=== PATIENT | male | born 1990 | race Two or more races ===

== ENCOUNTER → 2016-07-31 | Outpatient (CLI) | payer BC | LOC: M LAB 09:58 | PROVIDERS: ATTEND Family Medicine | DX: Z00.00 Encounter for general adult medical examination without abnormal findings (principal); R03.0 Elevated blood-pressure reading, without diagnosis of hypertension ==

== ENCOUNTER → 2016-08-16 | Outpatient (CLI) | payer BC ==
--- NOTE | 2016-08-19 15:08 | SLEEPHOME ---
DATE OF PROCEDURE: 08/16/2016 ORDERED BY: Shikha Shahid NP Diagnostic home sleep testing was performed due to concern for the obstructive sleep apnea syndrome in this patient with nonrestorative sleep and excessive somnolence. For testing, a NOX-T3 respiratory monitoring device was used. Continuous record was made of pulse, oxygen saturation, airflow, chest and abdominal strain, and body position. 9 hours and 59 minutes of data were reviewed. Only 3 hours and 5 minutes of time was marked as time in bed. However, during the interval marked time in bed, there were 47 respiratory events identified of 10 seconds in duration or greater. The respiratory event index was 15.2. The patient's events were primarily obstructive. The patient's baseline pulse rate was 78 beats per minute. Pulse rate ranged 51 to 115. Baseline saturation was 95%. Lowest oxygen saturation 70%. Testing was performed in both the supine and nonsupine positions. IMPRESSION: Abnormal home sleep testing with repetitive respiratory events and oxygen desaturations to 70% with a respiratory event index of 15.2 is consistent with the obstructive sleep apnea syndrome. RECOMMENDATION: The patient should be encouraged to undergo formal sleep evaluation with in-laboratory pressure titration.
== END ==
LOC: M SLEEP HO 08:02
PROVIDERS: ATTEND Nurse Practitioner Adult Health
DX: G47.30 Sleep apnea, unspecified (principal)

== ENCOUNTER → 2016-11-17 | Outpatient (CLI) | payer BC ==
--- NOTE | 2016-11-22 18:29 | SLEEPCENT ---
DATE OF PROCEDURE: 11/17/2016 ORDERED BY: Shikha Shahid Nocturnal polysomnography was performed for titration of pressure therapy in this patient with a clinical history of obstructive sleep apnea syndrome, confirmed by home testing revealing a respiratory event index of 15. For testing the patient was fit with a Edicy Eson nasal mask of large size. 5 cm of water pressure were applied to the circuit and the lights were extinguished. 8 hours and 4 minutes of data were reviewed. There were 466 minutes of sleep identified. Sleep latency was short at 6.5 minutes. Rapid eye movement (REM) latency was normal at 88 minutes. Sleep architecture was good with evidence of REM rebound late in the study. Overall sleep efficiency was 97%.EKG showed a sinus rhythm with an average heart rate of 58 beats per minute. EEG showed normal wave forms for wake and sleep. Respiratory events were fully palliated with CPAP at a pressure of +9. CPAP tolerance was good. Remaining measures of sleep physiology were normal. IMPRESSION: Obstructive sleep apnea syndrome (G47.33). RECOMMENDATIONS: Nightly use of pressure 9 cm of water.
== END ==
LOC: M SLEEP 19:48
PROVIDERS: ATTEND Nurse Practitioner Adult Health
DX: G47.33 Obstructive sleep apnea (adult) (pediatric) (principal)

== ENCOUNTER → 2020-09-24 | Outpatient (CLI) | payer BC ==
[2020-09-24 11:10] LABS: ALBUMIN 3.8 GM/DL (3.2-5.2); ALT/SGPT 18 U/L (12-78); BLOOD UREA NITROGEN 16 MG/DL (7-18); CALCIUM LEVEL 9.3 MG/DL (8.5-10.1); CARBON DIOXIDE LEVEL 28 MEQ/L (21-32); CHLORIDE LEVEL 105 MEQ/L (98-107); CHOLESTEROL LEVEL 145 MG/DL (<200); CHOLESTEROL RISK RATIO 3.152 (<5); CREATININE FOR GFR 0.84 MG/DL (0.70-1.30); GLOMERULAR FILTRATION RATE > 60.0 (>60); GLUCOSE, FASTING 92 MG/DL (70-100); HDL CHOLESTEROL 46 MG/DL (>40); LDL CHOLESTEROL 82 MG/DL (<100); NON-HDL-C 99 MG/DL; POTASSIUM SERUM 4.2 MEQ/L (3.5-5.1); SODIUM LEVEL 138 MEQ/L (136-145); TOTAL PROTEIN 7.4 GM/DL (6.4-8.2); TRIGLYCERIDES LEVEL 87 MG/DL (<150)
== END ==
LOC: M LAB 09:43
PROVIDERS: ATTEND Nurse Practitioner Family
DX: Z00.00 Encounter for general adult medical examination without abnormal findings (principal)

== ENCOUNTER → 2020-11-04 | Outpatient (CLI) | payer SELFPAY | LOC: M LABSMTC 10:19 | PROVIDERS: ATTEND Pediatrics | DX: Z20.822 Contact with and (suspected) exposure to COVID-19 (principal) ==

== ENCOUNTER 2021-04-23 19:53 | Emergency (ER) | payer BC, OTHER ==
[~2021-04-23] VITALS: Ht 177.8 cm; Wt 127.3 kg
[2021-04-23] MEDS ORDERED: predniSONE 20 MG TAB PO ONE (20:40)
[2021-04-23] MEDS ORDERED: BENA25CA4 PO ×2 (20:41→22:18)
[2021-04-23] MEDS ORDERED: LORATADINE 10 MG TAB PO ONE (22:15)
[2021-04-23] MEDS ORDERED: FAMOTIDINE 20 MG TAB PO ONE (22:15)
[2021-04-23] MEDS ORDERED: EPIP0.3I2 IM (22:18)
[2021-04-23] MEDS ORDERED: CLAR10CA3 PO (22:18)
[2021-04-23] MEDS ORDERED: PRED20TA PO (22:18)
[2021-04-23 22:35] VITALS: BP 136/82
== END 2021-04-23 22:37 | disposition home or self-care (01) ==
LOC: M ED 19:53
DX: R60.9 Edema, unspecified (principal); T78.40XA Allergy, unspecified, initial encounter; Z91.018 Allergy to other foods
CPT/HCPCS: 99283; J7512